=== PATIENT | male | born 1950 | race Caucasian/White ===

== ENCOUNTER 2016-04-19 10:32 | Day surgery (SDC) | payer MEDICARE, OTHER ==
[~2016-04-19] VITALS: Ht 177.8 cm; Wt 93.0 kg
--- NOTE | 2016-04-19 07:28 | PCM.HPANE ---
Patient Data Surgeon Admitting Provider: Attending Provider:Jaison Rodriguez MD Primary Care Physician:Jaison Spain DO Other Provider:[facility] Reason for Visit Tubular Adenoma Of Colon Ht/WT & BMI Body Mass Index Allergies Coded Allergies: clopidogrel (Verified Allergy, Unknown, 04/17/16) Medications Reported Medications Metoprolol Succinate ER (Toprol XL)25 Mg Heuwfj05 Mg PO DAILY Ref 0 04/17/16 Simvastatin 20 Mg Gwthan12 Mg PO HS Ref 0 04/17/16 Multivitamin (Multivitamins)1 Each Capsule1 Each PO DAILY 04/17/16 Metformin 500 Mg Izrgbr459 Mg PO BID Ref 0 04/17/16 Isosorbide DN 30 Mg Eghzmn18 Mg PO DAILY Ref 0 04/17/16 Prasugrel HCl (Effient)10 Mg Khirqe83 Mg PO DAILY 30 Days Ref 0 04/17/16 Duloxetine (Cymbalta)30 Mg Capsule.dr30 Mg PO BID Ref 0 04/17/16 Aspirin 81 Mg Bozxog63 Mg PO DAILY Ref 0 04/17/16 Amlodipine 5 Mg Tablet5 Mg PO DAILY Ref 0 04/17/16 History Hx of Heart Problems?: Yes Cardiovascular History: Positive for:: Chest Pain Coronary Artery Disease Other Cardiac History: stents per [facility], doing well since then Stop/Bang Risk Assessment Category Category 1A: Patient has history of documented sleep apnea, and HAS NOT received any narcotic, sedative or anesthesia administration during this stay. Category 1B: Patient has history of documented sleep apnea, and HAS received any narcotic , sedative or anesthesia administration during this stay Category 2: Patient has SUSPECTED Obstructive Sleep Apnea, and HAS received any narcotic , sedative or anesthesia administration during this stay. Category 3: Patient has SUSPECTED Obstructive Sleep Apnea and HAS NOT received narcotic, sedative or anesthesia administration during this stay. Category 4: Outpatient in Procedural Areas with known sleep apnea or who screen positive for High Risk via the STOP/BANG questionnaire. Exam Exam General Appearance: Alert, Oriented X3, Cooperative, No Acute Distress HEENT/AIRWAY: MP 2 Lungs: Clear to Auscultation, Normal Air Movement Heart: Exam Unremarkable, Regular Rate/Rhythm, No Murmurs/Rubs/Gallops Plan Impression Patient chart reviewed, patient interviewed and anesthestic plan with risks, benefits, and alternatives discussed, and informed consent obtained. ASA Physical Status: ASA2 Mod Systemic Disease Anesthetic Plan: MAC Bene/Risks/Altern/Consents: Yes HP Complete Prior to Induction: Yes Echo Singleton MD Apr 19, 2016 07:28
[~2016-04-19 10:32] MED LIST: AMLO5TAB2 PO; ASPI-973 PO; DULO30CA PO; ISOS30TA8 PO; Lactated Ringer's 1,000 ML IV ONE; METF500T4 PO; METO25TA3 PO; MULT1CAP33 PO; PRAS10TA5 PO; SIMV20TA4 PO
[2016-04-19] MEDS ORDERED: Propofol 10,000 mCg/mL 20 mL Inj ONE (10:33)
[2016-04-19] MEDS ORDERED: fentaNYL-PF 50 mCg/mL 2 mL Inj ONE (10:33)
[2016-04-19 10:55] VITALS: BP 138/85; PULSE 69; RESP 16; O2SAT 98
[2016-04-19] MEDS ORDERED: Lactated Ringer's 1,000 ML IV SCH (12:26)
--- NOTE | 2016-04-19 12:26 | PCM.ANEP1 ---
Post Anesthesia Phase 1 PACU Phase 1 Assessment Vital Signs Vital Signs Date Time Temp Pulse Resp B/P Pulse Ox O2 Delivery O2 Flow Rate FiO2 04/19/16 10:55 36.7 69 16 138/85 98 Room Air Anesthetic Administered: MAC Level of Alertness: Awake, talking FONTENOT's with Equal Strength: Yes Pain: No Nausea or Vomiting: No Oxygen Delivery: Nasal Cannula Lungs: Clear to Auscultation, Normal Air Movement Echo Singleton MD Apr 19, 2016 12:26
--- NOTE | 2016-04-19 12:28 | PCM.ANEP2 ---
Post Anesthesia Evaluation ASA/CMS Post Anesthesia VS in Patient's Normal Range?: Yes Resp Stable; Airway Patent?: Yes CV Function & Hydration Stable: Yes Mental Status Recovered?: Yes Pain control Satisfactory?: Yes N/V Control Satisfactory?: Yes Echo Singleton MD Apr 19, 2016 12:28
[2016-04-19 12:29] VITALS: BP 109/63; PULSE 65; RESP 16; O2SAT 96
[2016-04-19] MEDS ORDERED: MetoCLOpramide 5 mg/mL 2 mL Inj IVPUSH PRN (12:30)
[2016-04-19] MEDS ORDERED: Ondansetron 2 mg/mL 2 mL Inj IVPUSH PRN (12:30)
[2016-04-19 12:40] VITALS: BP 123/69; PULSE 64; RESP 16; O2SAT 95
[2016-04-19 12:41] VITALS: BP 111/63; PULSE 72; RESP 16; O2SAT 97
--- NOTE | 2016-04-19 13:43 | ENDO ---
[address] [address] ENDOSCOPY PROCEDURE PATIENT: AIDAN CRANE : 1950 MR#: [id number] ADMIT: 04/19/2016 JOB ID: [id number] PREOPERATIVE DIAGNOSIS(ES): History of tubular adenoma. POSTOPERATIVE DIAGNOSIS(ES): Normal colonoscopy. ANESTHESIA: Monitored anesthesia care. COMPLICATIONS: None. BLOOD LOSS: Minimal. DESCRIPTION OF PROCEDURE: After the risks and benefits were explained to the patient, informed consent was obtained. After anesthesia was administered, the colonoscope was inserted per rectum to cecum and the mucosa carefully examined. The prep of the patient was excellent. After the procedure was done, the scope was withdrawn and the procedure terminated. FINDINGS: Upon inspection of the anus, no masses, hemorrhoids, ulcers, or fissures are seen. Throughout the entire examination no polyps, masses, or lesions. Retroflexion was normal. IMPRESSION: Normal colonoscopy. RECOMMENDATIONS: Repeat colonoscopy in five years given history of tubular adenoma of the colon.
== END 2016-04-19 23:59 | disposition home or self-care (01) ==
LOC: END 10:32
PROVIDERS: ATTEND Internal Medicine Gastroenterology
DX: Z12.11 Encounter for screening for malignant neoplasm of colon (principal); Z86.010 Personal history of colon polyps; I25.10 Atherosclerotic heart disease of native coronary artery without angina pectoris; E11.9 Type 2 diabetes mellitus without complications; Z86.73 Personal history of transient ischemic attack (TIA), and cerebral infarction without residual deficits; Z79.82 Long term (current) use of aspirin; Z79.84 Long term (current) use of oral hypoglycemic drugs; Z87.891 Personal history of nicotine dependence; Z95.5 Presence of coronary angioplasty implant and graft
CPT/HCPCS: G0105; J2250; J3010; J7120